=== PATIENT | female | born 1940 | race Caucasian/White ===

== ENCOUNTER 2019-05-25 10:51 | Inpatient (IN) | payer MEDICARE, OTHER, SELFPAY | END 2019-05-27 16:05 | disposition home or self-care (01) | DRG 176 | PROVIDERS: Admitting Provider Internal Medicine; Emergency Provider Family Medicine; Family Provider Family Medicine; Visit Provider Internal Medicine | DX: I26.99 Other pulmonary embolism without acute cor pulmonale (principal); Z23 Encounter for immunization; I10 Essential (primary) hypertension; E78.5 Hyperlipidemia, unspecified; E03.9 Hypothyroidism, unspecified; I80.02 Phlebitis and thrombophlebitis of superficial vessels of left lower extremity; G47.33 Obstructive sleep apnea (adult) (pediatric); Z85.42 Personal history of malignant neoplasm of other parts of uterus; Z79.82 Long term (current) use of aspirin; E66.01 Morbid (severe) obesity due to excess calories; Z68.35 Body mass index [BMI] 35.0-35.9, adult; H35.30 Unspecified macular degeneration; F32.9 Major depressive disorder, single episode, unspecified; K21.9 Gastro-esophageal reflux disease without esophagitis; Z92.3 Personal history of irradiation ==

== ENCOUNTER 2019-06-14 08:39 | Outpatient (CLI) | payer MEDICARE, OTHER, SELFPAY ==
--- NOTE | 2019-06-14 08:54 | CT_ITS ---
WS: [id number] CT ABDOMEN PELVIS TECHNIQUE: Contrast-enhanced CT of the abdomen and pelvis with coronal and sagittal reformatted image s. CLINICAL INFORMATION: ENDOMETRIUM CANCER, PULMONARY EMBOLISM COMPARISON: None. DLP: 1084.[address] scans at [facility] use at least one of these dose optimization techniques: automat ed exposure control; mA and/or kV adjustment per patient size (includes targeted exams where dose is matched to clinical indication); or iterative reconstruction. FINDINGS: Mild diffuse fatty infiltration of the liver. Normal portal vein and splenic vein. Cholecystectomy cl ips. Splenic granulomas. Moderate esophageal hiatal hernia with periesophageal component. Calcified g ranuloma right lung base. Adrenal glands are normal. Normal pancreas. Abdominal aortic calcification. No aneurysm. Sigmoid diverticulosis. No evidence of acute diverticulitis. No evidence of small or large bowel obst ruction. Mild fecal retention in the colon. No periaortic lymphadenopathy. No inguinal lymphadenopath y. Slight retrolisthesis L5 on S1. CT/CT abdomen pelvis w con* [id number] IMPRESSION: 1. No abdominal or pelvic lymphadenopathy. 2. Mild diffuse fatty infiltration liver. Cholecystectomy. 3. Small esophageal hiatal hernia with a paraesophageal component. 4. Normal renal parenchymal enhancement. No hydronephrosis. 5. Diverticulosis.
[2019-06-14] MEDS: iohexol 300 mg/mL 50 mL Btl PO (09:26)
[2019-06-14 09:30] LABS: Blood Urea Nitrogen 31 mg/dL (8-23)
[2019-06-14] MEDS: iodixanol 320 mg/mL 100mL Btl IV (09:37)
== END 2019-06-14 08:40 | disposition home or self-care (01) ==
LOC: RADWPI 08:51
PROVIDERS: Family Provider Family Medicine; Visit Provider Family Medicine
DX: I26.99 Other pulmonary embolism without acute cor pulmonale (principal); C54.1 Malignant neoplasm of endometrium; K76.0 Fatty (change of) liver, not elsewhere classified; K44.9 Diaphragmatic hernia without obstruction or gangrene; K57.90 Diverticulosis of intestine, part unspecified, without perforation or abscess without bleeding
CPT/HCPCS: 74177; 82565; 84520; Q9967

== ENCOUNTER 2021-04-07 08:37 | Outpatient (RCR) | payer MEDICARE, OTHER, SELFPAY | END 2021-04-29 23:59 | disposition home or self-care (01) | LOC: SPT 08:37 | PROVIDERS: Family Provider Family Medicine; PCP Family Medicine; Referring Provider Family Medicine; Visit Provider Family Medicine | DX: M25.511 Pain in right shoulder (principal); M25.512 Pain in left shoulder | CPT/HCPCS: 97110; 97162 ==

== ENCOUNTER → 2021-10-07 10:32 | Outpatient (BNVA) | payer MEDICARE, OTHER, SELFPAY | PROVIDERS: Family Provider Family Medicine; PCP Family Medicine; Visit Provider Family Medicine | DX: C54.1 Malignant neoplasm of endometrium (principal); E78.5 Hyperlipidemia, unspecified; Z51.81 Encounter for therapeutic drug level monitoring; E03.9 Hypothyroidism, unspecified; I10 Essential (primary) hypertension | CPT/HCPCS: 80053; 80061; 83880; 84443; 85025; 85651; 86140 ==

== ENCOUNTER 2021-10-30 09:50 | Outpatient (CLI) | payer MEDICARE, OTHER, SELFPAY ==
--- NOTE | 2021-10-30 09:58 | USCV_ITS ---
Gela Jane Age: 81 Gender: F : 1940 Exam Date: 10/30/2021 10:20 Ordering Phys: Adair Bhatt MD Technologist: Remington Washington [place] [facility] [place]: Congetive heart failure BP: 90 / 50 HR: 62 Rhythm: Sinus Technical Quality: Adequate MEASUREMENTS (Male / Female) Normal Values 2D ECHO LV Diastolic Diameter PLAX 4.4 cm 4.2 - 5.9 / 3.9 - 5.3 cm LV Systolic Diameter PLAX 2.9 cm IVS Diastolic Thickness 1.2 cm 0.6 - 1.0 / 0.6 - 0.9 cm IVS Systolic Thickness 1.5 cm LVPW Diastolic Thickness 1.0 cm 0.6 - 1.0 / 0.6 - 0.9 cm LVPW Systolic Thickness 1.3 cm LVOT Diameter 2.0 cm LV Ejection Fraction 2D Teich 62.9 % LV Ejection Fraction MOD 2C 56.3 % LV Ejection Fraction 2C AL 58.7 % LA Diameter 3.5 cm LA Width 3.6 cm LA Height 4.9 cm RA Width 2.9 cm RA Height 4.4 cm Aorta at Sinotubular Diameter 2.7 cm IVC Diameter 1.8 cm M-MODE Aortic Annulus Diameter 2.6 cm LA Ao Ratio MM 1.2 MV E Point Septal Separation 0.6 cm DOPPLER AV Peak Velocity 144.0 cm/s LVOT Peak Velocity 81.0 cm/s AV Area Cont Eq vti 1.7 cm squared AV Area Cont Eq pk 1.8 cm squared MV Peak Velocity 101.0 cm/s MV Area PHT 5.4 cm squared Mitral E to A Ratio 0.6 MV E' Velocity 30.0 cm/s Mitral E to MV E' Ratio 6.9 Mitral E to LV E' Lateral Ratio 7.7 Mitral E to LV E' Septal Ratio 6.3 TR Peak Velocity 248.5 cm/s TR Peak Gradient 24.7 mmHg TR Mean Velocity 199.5 cm/s TR Mean Gradient 16.8 mmHg TR Velocity Time Integral 71.5 cm Right Atrial Pressure 3.0 mmHg Pulmonary Artery Systolic Pressu 27.7 mmHg RV Acceleration Time 0.1 s RV Ejection Time 0.2 s RV AcT/ET 0.4 FINDINGS Left Ventricle Technically limited quality echocardiogram because of poor ultrasonic windows. Normal left ventricular size. LV systolic function is normal with EF 55 to 60%. No regional wall motion abnormalities. Grade 1 diastolic dysfunction Right Ventricle The right ventricle is normal in size and function. Right Atrium The right atrium is normal in size. Left Atrium The left atrium is normal in size. Mitral Valve Mild mitral annular calcification without significant stenosis or prolapse. There is trace mitral regurgitation. Aortic Valve Thickened aortic valve without significant stenosis. There is mild aortic regurgitation. Tricuspid Valve Structurally normal tricuspid valve without significant stenosis. Mild tricuspid regurgitation. Pulmonary artery systolic pressure is normal. Pulmonic Valve Not well-visualized Pericardium Normal pericardium without effusion. Aorta Normal ascending aorta dimension. IVC CONCLUSIONS Technically limited quality echocardiogram because of poor ultrasonic windows. LV systolic function is normal with EF 55 to 60%. Grade 1 diastolic dysfunction. Trace mitral regurgitation. Mild aortic regurgitation. Mild tricuspid regurgitation. Compared to prior echocardiogram from 05/25/2019, no significant changes seen. Alexsander Mckeon MD (Electronically Signed) Final Date: 12 November 2021 11:17 S
== END 2021-10-30 09:51 | disposition home or self-care (01) ==
LOC: RAD 09:52
PROVIDERS: PCP Family Medicine; Visit Provider Family Medicine
DX: I50.9 Heart failure, unspecified (principal); I08.3 Combined rheumatic disorders of mitral, aortic and tricuspid valves
CPT/HCPCS: 93306

== ENCOUNTER → 2022-05-14 08:58 | Outpatient (BNVA) | payer MEDICARE, OTHER, SELFPAY | PROVIDERS: PCP Family Medicine; Visit Provider Family Medicine | DX: I10 Essential (primary) hypertension (principal); R53.83 Other fatigue; Z86.711 Personal history of pulmonary embolism; F41.9 Anxiety disorder, unspecified; H35.30 Unspecified macular degeneration | CPT/HCPCS: 80053; 84443 ==

== ENCOUNTER → 2022-11-19 09:23 | Outpatient (BNVA) | payer MEDICARE, OTHER, SELFPAY | PROVIDERS: PCP Family Medicine; Visit Provider Family Medicine | DX: I10 Essential (primary) hypertension (principal); R53.83 Other fatigue; E03.9 Hypothyroidism, unspecified; R07.9 Chest pain, unspecified | CPT/HCPCS: 80053; 80061; 82607; 83735; 84443; 85025; 85651; 86140 ==

== ENCOUNTER 2022-12-18 06:29 | Outpatient (CLI) | payer MEDICARE, OTHER, SELFPAY ==
[2022-12-18 06:55] VITALS: BMI 31.1
--- NOTE | 2022-12-18 06:56 | ECG_ITS ---
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 Interpretive Statements NAME OF STUDY: LEXISCAN SESTAMIBI STRESS TEST INDICATION: Chest Pain PROCEDURE: At the baseline, the blood pressure was 136/77 mmHg with a heart rate of 55 bpm. The electrocardiogram showed sinus bradycardia with first-degree AV block. normal axis. Possible old anteroseptal infarct. The Lexiscan was infused over a period of 20 seconds. A total of 0.4 milligrams of Lexiscan was infused. The stress phase was continued for a total of 5 minutes. Heart rate at the end of the stress phase was 69 bpm with a blood pressure 122/76 mmHg. The EKG at the peak infusion revealed nonspecific ST-T wave changes and frequent supraventricular ectopic beats. Sestamibi was injected 20 seconds after the Lexiscan infusion. Blood pressure at the end of the recovery phase was 120/74 mmHg with a heart rate of 66 beats per minute. Patient developed nausea and required administration of Zofran. CONCLUSION: 1. No significant EKG changes with the LexiScan infusion 2. No LexiScan induced chest pain or cardiac arrhythmia. 3. Normal blood pressure and heart rate response. 4. Sestamibi/sestamibi perfusion scan pending; see separate report. Electronically Signed On 12-20-2022 13:22:41 CDT by Caro Roberts M.D. [id number]
--- NOTE | 2022-12-18 06:56 | NMCV_ITS ---
NM ayla perf SPECT r/s* [id number] Gela Jane Age: 82 Gender: F : 1940 Exam Date: 12/18/2022 07:40 Ordering Phys: Adair Bhatt MD Technologist: BRIANNE Abrams Exam Location: [facility] Indications: CHEST PAIN STRESS TEST Please see separate stress test report in [facility] for full findings IMAGE PROTOCOL Rest/Stress 1 Lexiscan Day Radiopharmaceutical Dose (mCi) Administration Site Administered by Rest: Tc-99m 10.6 IV Myke Adamson, INDEPENDENT LIVING ADVISOR Sestamibi Stress:Tc-99m 32.7 IV Myke Adamson, INDEPENDENT LIVING ADVISOR Sestamibi Rest: 18-Dec-2022 60 Discovery 630 Stress: 18-Dec-2022 30 Discovery 630 0.4mg Lexiscan. Images obtained in supine and prone position. SPECT RESULTS Technical Quality: Excellent Raw Data Analysis: Normal Image Corrections: No attenuation or motion correction applied Summed Stress Score: 1 Summed Rest Score: 3 Summed Difference Score: 0 PERFUSION FINDINGS SPECT images demonstrate homogeneous tracer distribution throughout the myocardium. FUNCTIONAL RESULTS (calculated via Gated SPECT) Stress Image LV EF (%): 60 Stress EDV (mL):121 TID: 0.85 Stress ESV (mL):49 FUNCTIONAL FINDINGS: The left ventricle is normal in size. Transient Ischemia Dilatation of 0.85. The left ventricular ejection fraction is normal with a value of 60% There is normal left ventricular wall thickening. IMPRESSIONS 1. Myocardial perfusion imaging is normal. 2. Overall left ventricular systolic function is normal without regional wall motion abnormalities,LVEF=60%. 3. EKG portion of the study will be reported separately. Caro Roberts MD (Electronically Signed) Final Date: 18 December 2022 13:54 S
[2022-12-18] MEDS: regadenoson 0.4 Mg/5 ml Syringe IVP (08:24)
[2022-12-18] MEDS: ondansetron 2 mg/ML SDV 2 mL 4 MG IVP (08:34)
[2022-12-18 08:35] VITALS: BP 120/74; PULSE 65
== END 2022-12-18 06:30 | disposition home or self-care (01) ==
LOC: CDL 06:33
PROVIDERS: PCP Family Medicine; Visit Provider Family Medicine
DX: R07.9 Chest pain, unspecified (principal)
CPT/HCPCS: 36415; 78452; 93017; 96374; 96375; A9500; J2405; J2785

== ENCOUNTER → 2023-10-28 09:14 | Outpatient (BNVA) | payer MEDICARE, OTHER, SELFPAY | PROVIDERS: PCP Family Medicine; Visit Provider Family Medicine | DX: E55.9 Vitamin D deficiency, unspecified (principal); F41.9 Anxiety disorder, unspecified; I10 Essential (primary) hypertension; E03.9 Hypothyroidism, unspecified; R53.83 Other fatigue; E11.9 Type 2 diabetes mellitus without complications; Z79.899 Other long term (current) drug therapy | CPT/HCPCS: 80053; 80061; 82306; 82607; 83036; 83880; 84443; 85025; 86140 ==

== ENCOUNTER → 2023-11-18 09:05 | Outpatient (BNVA) | payer MEDICARE, OTHER, SELFPAY | PROVIDERS: PCP Family Medicine; Visit Provider Family Medicine | DX: I10 Essential (primary) hypertension (principal) | CPT/HCPCS: 80048 ==

== ENCOUNTER → 2024-03-23 09:56 | Outpatient (BNVA) | payer MEDICARE, OTHER, SELFPAY | PROVIDERS: PCP Family Medicine; Visit Provider Family Medicine | DX: I10 Essential (primary) hypertension (principal); E03.9 Hypothyroidism, unspecified; E11.9 Type 2 diabetes mellitus without complications | CPT/HCPCS: 80048; 84443 ==

== ENCOUNTER → 2024-06-21 11:50 | Outpatient (BNVA) | payer MEDICARE, OTHER, SELFPAY | PROVIDERS: PCP Family Medicine; Visit Provider Family Medicine | DX: F41.9 Anxiety disorder, unspecified (principal); I10 Essential (primary) hypertension; E03.9 Hypothyroidism, unspecified; R53.83 Other fatigue | CPT/HCPCS: 80053; 84443; 85025 ==

== ENCOUNTER 2024-11-27 11:15 | Emergency (ER) | payer MEDICARE, OTHER, SELFPAY ==
--- NOTE | 2024-11-27 11:21 | CTR_ITS ---
PROCEDURE INFORMATION: Exam: CT Head Without Contrast Exam date and time: 11/27/2024 11:18 AM Age: 84 years old Clinical indication: Stroke-like symptoms; Dizziness/giddiness; Myron lower extremity weakness; Additional info: Symptoms of acute stroke TECHNIQUE: Imaging protocol: Computed tomography of the head without contrast. Radiation optimization: All CT scans at this facility use at least one of these dose optimization techniques: automated exposure control; mA and/or kV adjustment per patient size (includes targeted exams where dose is matched to clinical indication); or iterative reconstruction. Other technique: STROKE PROTOCOL was implemented. COMPARISON: No relevant prior studies available. RADIATION DOSE METRICS: Total DLP (mGy-cm): 1106.12 FINDINGS: Brain: No acute infarct, hemorrhage, mass, or mass effect. Mild chronic white matter microvascular ischemic change. Cerebral ventricles: Moderate brain parenchymal atrophy with widening of the ventricles and sulci. No appreciable extra-axial fluid. Paranasal sinuses: Clear. Mastoid air cells: Clear. Orbital cavities: Orbits are unremarkable. Sella is unremarkable. Bones: Unremarkable. Soft tissues: Unremarkable. CT/CT head thrombolytic [id number] IMPRESSION: No acute intracranial abnormality. ASSESSMENT: ASPECTS (Monie Stroke Program Early CT Score) is 10.
--- OUTSIDE RECORDS SUMMARY | 2024-11-27 11:25 | XMS_ITS | Clinical Summary ---
Author Organization [facility] Address [address] Attn: [place] [address] Care Team Providers Care Machine Shop Specialist Name Role Phone Adair Bhatt MD Primary Care Provider [phone] Social History Tobacco Use Types Packs/Day Years Used Date Smoking Tobacco: Never Assessed Comments Unknown Sex and Gender Information Value Date Recorded Sex Assigned at Not on file Legal Sex Female 12:23 PM BILLING CLERK Gender Identity Not on file Sexual Orientation Not on file Plan of Treatment Health Maintenance Due Date Last Done Comments DTAP/TDAP/TD VACCINES (1 - Tdap) 1959 PNEUMOCOCCAL VACCINE 50+ YEARS (1 of 1 - PCV) 06/07/18 90 ZOSTER VACCINE (1 of 2) 1989 OSTEOPOROSIS SCREENING 2004 RSV VACCINE (60+ or ) (1 - 1-dose 75+ series) 2014 INFLUENZA VACCINE (#1) 2023 Care Teams Machine Shop Specialist Relationship Specialty Start Date End Date Adair Bhatt MD [address] [place] [phone] PCP - General Family Practice 07/19/15
--- OUTSIDE RECORDS SUMMARY | 2024-11-27 11:25 | XMS_ITS | Encounter Summary ---
Author Organization [facility] Address [address] [place] [address] Care Team Providers Care Flux Core Welder Name Role Phone Adair Bhatt MD Primary Care Provider Encounter Details Date Type Department Care Team (Late st Contact Info) Description 07/19/2015 Ancillary Orders [facility] Admitting [address] [place] [id number] Anival Montez, KIM [address] [place], [place] [id number] Hallux valgus of right foot (Primary Dx); Charliee, right Social History Tobacco Use Types Packs/Day Years Used Date Smoking Tobacco: Never Assessed Comments Unknown Sex and Gender Information Value Date Recorded Sex Assigned at Not on file Legal Sex Female 3:24 PM PRIVACY MANAGER Gender Identity Not on file Sexual Orientation Not on file documented as of this encounter Plan of Treatment Not on file documented as of this encounter Results * XR FOOT 3+ VW RIGHT (07/19/2015 4:12 PM PRIVACY MANAGER) Anatomical Region Laterality Modality Ankle / Foot Computed Radiogr aphy 07/19/2015 4:12 PM PRIVACY MANAGER Impressions 07/22/2015 2:45 PM PRIVACY MANAGER IMPRESSION: 1. No acute injury to the bony right foot. [id number] Narrative 07/22/2015 2:45 PM PRIVACY MANAGER Exam: XR FOOT 3+ VW RIGHT Date/Time of Exam: 07/19/2015 4:12 PM Reason For Exam: Hallux valgus of right foot, Hammertoe, right. Findings: AP, lateral and oblique projections of the right foot demonstrates no evidence of fracture. Tarsal and metatarsal bones appear to be intact. Rays of the foot are likewise intact. Katiana are unremarkable. There are no radiopaque soft tissue foreign bodies. Anival Montez DPLily DIAGNOSTIC IMAGING ORDERABLE S Final Result documented in this encounter Visit Diagnoses Diagnosis Hallux valgus of right foot- Primary Hammertoe, right Hallux valgus of right foot Hammertoe, right documented in this encounter Care Teams Flux Core Welder Relationship Specialty Start Date End Date Adair Bhatt MD [address] [place] [phone] PCP - General Family Practice 07/19/15 documented as of this encounter
--- OUTSIDE RECORDS SUMMARY | 2024-11-27 11:25 | XMS_ITS | Clinical Summary ---
Author Organization [facility] Address [address] [address] Phone Care Team Providers Care Industrial Trainer Name Role Phone Adair Bhatt MD Primary Care Provider Social History Tobacco Use Types Packs/Day Years Used Date Smoking Tobacco: Never Assessed Comments Unknown Sex and Gender Information Value Date Recorded Sex Assigned at Not on file Legal Sex Female 3:24 PM GRIP WRAPPER Gender Identity Not on file Sexual Orientation Not on file Plan of Treatment Health Maintenance Due Date Last Done Comments DTAP/TDAP/TD VACCINES (1 - Tdap) 1958 PNEUMOCOCCAL VACCINE 50+ YEARS (1 of 1 - PCV) 06/07/18 90 ZOSTER VACCINE (1 of 2) 1989 OSTEOPOROSIS SCREENING 2004 RSV VACCINE (60+ or ) (1 - 1-dose 75+ series) 2014 INFLUENZA VACCINE (#1) [address] [place] [id number] MEDICARE PART A AND B [facility] Care Teams Industrial Trainer Relationship Specialty Start Date End Date Adair Bhatt MD [address] [place] [phone] PCP - General Family Practice 07/19/15
--- NOTE | 2024-11-27 11:27 | W.ED.NEUROSD ---
HPI - Neuro Symptoms/Deficit General: Chief Complaint: Neuro Symptoms/Deficit Stated Complaint: stroke alert Time Seen by Provider: 11/27/24 11:20 History of Present Illness: 84-year-old female presents emergency room from urgent care clinic with complaints of dizziness nausea and vomiting sudden onset this morning but has had a headache for the last couple of days. Initially seen by Dr. Rousseau directed to the emergency room for concern of stroke. Her last known well was last evening she woke up this morning around 9:00 with the symptoms. Associated symptoms: Deny chest pain Related Data Home Medications ?Medication ?Instructions ?Recorded ?Confirmed cholecalciferol (vitamin D3) 25 1,000 unit PO DAILY 06/06/19 11/27/24 mcg (1,000 unit) capsule aspirin 81 mg tablet,delayed 162 mg PO DAILY 08/27/22 11/27/24 release (Adult Aspirin Regimen) Previous Rx's ?Medication ?Instructions ?Recorded vit C 250 mg-vit E 90 mg-zinc 40 1 tab PO BID #90 caps 07/25/20 mg-copper 1 rp-mwzqun-ihrinq capsule (PreserVision AREDS-2) ketoconazole 2 % topical cream 1 applic topical BID #30 grams 01/14/21 amlodipine 10 mg tablet See Rx Instructions .Route 06/21/24 .COMPLEX #90 tabs citalopram 20 mg tablet 20 mg PO BID #180 tabs 06/21/24 omeprazole 20 mg capsule,delayed 20 mg PO DAILY #90 caps 06/21/24 release levothyroxine 75 mcg tablet 75 mcg PO DAILY #90 tabs 06/23/24 atorvastatin 40 mg tablet (Lipitor) 40 mg PO DAILY #30 tabs 11/27/24 clopidogrel 75 mg tablet 75 mg PO DAILY #30 tabs 11/27/24 Allergies Allergy/AdvReac Type Severity Reaction Status Date / Time No Known Allergies Allergy Verified 11/27/24 10:45 Review of Systems Const: Denies: fever(s) or chills Card: Denies: chest pain Resp: Denies: dyspnea GI: Denies: abdominal pain : Denies: dysuria, urinary frequency or urinary urgency Musc: Denies: neck pain or back pain Skin/Breast: Denies: rash PFSH ED PFSH: Medical History Anxiety Hypothyroidism Sleep apnea Hypertension Dyslipidemia Macular degeneration Pulmonary embolism DVT (deep venous thrombosis) Surgical History S/P cholecystectomy H/O: hysterectomy Family History Other Cancer Hyperlipidemia Hypertension Social History Smoking and tobacco/nicotine status: never used tobacco/nicotine Alcohol intake: never Substance/Drug Use: never NIH stroke score NIHSS: Level Of Consciousness - 1a: 0 Level Of Consciousness Questions - 1b: Both Correct Level Of Consciousness Commands - 1c: Both Correct Best Gaze - 2: Normal Visual Rojas - 3: No Visual Loss Facial Palsy - 4: Normal Motor Arm Right - 5: No Drift Motor Arm Left - 5: No Drift Motor Leg Right - 6: No Drift Motor Leg Left - 6: No Drift Limb Ataxia - 7: Absent Sensory - 8: Normal Best Language - 9: No Aphasia Dysarthia - 10: Normal Extinction And Inattention - 11: 0 Score: Total Score: 0 Physical Exam Const: GENERAL APPEARANCE: cooperative ORIENTATION/CONSCIOUSNESS: Yes awake, Yes oriented to person, Yes oriented to place and Yes oriented to time HENMT: COMMON NORMALS: normocephalic, atraumatic and hearing grossly normal bilaterally HEAD & SCALP: normocephalic and atraumatic Resp: COMMON NORMALS: normal respiratory effort, No retractions, No use of accessory muscles and clear to auscultation bilaterally AUSCULTATION: clear to auscultation bilaterally Cardio: COMMON NORMALS: regular rate, regular rhythm and No murmurs present (Cardio) RATE: regular rate RHYTHM: regular rhythm GI: COMMON NORMALS: Soft to palpation and No hepatosplenomegaly present AUSCULTATION: Yes normoactive bowel sounds PALPATION: Yes Soft to palpation, No Tenderness to palpation present (GI), No Guarding due to palpation present (GI) and Yes No hepatosplenomegaly present Extremity: COMMON NORMALS: normal to inspection, capillary refill normal, no clubbing, cyanosis or edema, no calf tenderness and no pedal edema Neuro: SENSORIUM/ORIENTATION: Yes oriented to person, Yes oriented to place and Yes oriented to time Skin: COMMON NORMALS: no rashes or lesions noted GENERAL SKIN EXAM: no rashes or lesions noted Course Vital Signs: Vital signs: Vital Signs Temperature 97.9 F 11/27/24 11:28 Pulse Rate 55 L 11/27/24 13:01 Respiratory Rate 16 11/27/24 11:28 Blood Pressure 180/91 11/27/24 13:01 Pulse Oximetry 91 11/27/24 13:01 Oxygen Delivery Me thod Room Air 11/27/24 12:06 MDM - Neuro Symptoms/Deficit Medical Decision Making Patient presents with symptoms as described as wake up well outside of any window for treatment on arrival here she has an NIH of 0 no signs of posterior stroke no nausea or vomiting she still has little bit of dizziness occasionally does not appear to be central she ambulates without any difficulty. Reviewed the case with Dr. Carmichael who is on-call for stroke for neurology. She does not feel a CTA head and neck are necessary. Will add clopidogrel and atorvastatin and have the patient follow-up with primary care doctor to monitor blood pressure she is mildly elevated at this time we did not make any adjustments. Medical Records I reviewed the patient's medical records. Lab Data I reviewed the patient's lab results. 11/27/24 11:36 11/27/24 11:[address] 11/27/24 11:21 IMPRESSION: No acute intracranial abnormality. ASSESSMENT: ASPECTS ([place] Stroke Program Early CT Score) is 10. ADDENDUM: 11/27/24 1139 COMMENT: THIS REPORT CONTAINS FINDINGS THAT MAY BE CRITICAL TO PATIENT CARE. The exam findings were verbally communicated by me to CATARINO PEÑALOZA via telephone conference at 11:38 AM CDT on 11/27/2024. The findings were acknowledged and understood. Laboratory Results WBC 7.52 10^3/uL (3.29-11.43) 11/27/24 11:36 RBC 4.11 10^6/uL (3.85-5.65) 11/27/24 11:36 Hgb 12.70 g/dL (11.27-16.99) 11/27/24 11:36 Hct 40.3 % (36-47) 11/27/24 11:36 MCV 98.1 fl (85-98) H 11/27/24 11:36 MCH 30.9 pg (27-33) 11/27/24 11:36 MCHC 31.5 g/dL (30-55) 11/27/24 11:36 RDW 13.7 % (12.1-15.1) 11/27/24 11:36 Plt Count 261 10^3/cmm (157-399) 11/27/24 11:36 MPV 9.0 fL (7.4-10.4) 11/27/24 11:36 Neut % (Auto) 64.8 % 11/27/24 11:36 Lymph % (Auto) 17.2 % 11/27/24 11:36 Kane % (Auto) 13.3 % 11/27/24 11:36 Eos % (Auto) 3.7 % 11/27/24 11:36 Baso % (Auto) 0.7 % 11/27/24 11:36 Neut # (Auto) 4.88 10^3/uL (1.8-7.7) 11/27/24 11:36 Lymph # (Auto) 1.3 10^3/uL (0.8-4.8) 11/27/24 11:36 Kane # (Auto) 1.0 10^3/uL (0.2-0.9) H 11/27/24 11:36 Eos # (Auto) 0.3 10^3/uL (0.0-0.8) 11/27/24 11:36 Baso # (Auto) 0.1 10^3/uL (0.0-0.1) 11/27/24 11:36 Nucleated RBC % (auto) 0 % 11/27/24 11:36 Nucleated RBCs # 0.0 /100WBC 11/27/24 11:36 PT 13.10 SECONDS (12.1-14.9) 11/27/24 11:36 INR 0.93 (0.8-1.2) 11/27/24 11:36 APTT 25.6 SECONDS (23.9-36.7) 11/27/24 11:36 Sodium 138 mmol/L (136-145) 11/27/24 11:36 Potassium 3.9 mmol/L (3.5-5.1) 11/27/24 11:36 Chloride 103 mmol/L (98-107) 11/27/24 11:36 Carbon Dioxide 26 mmol/L (22-29) 11/27/24 11:36 Anion Gap 12.9 (5-19) 11/27/24 11:36 BUN 19 mg/dL (8-23) 11/27/24 11:36 Creatinine 1.2 mg/dL (0.5-0.9) H 11/27/24 11:36 GFR Calculation Not Reportable 11/27/24 11:36 Glucose 83 mg/dL (65-115) 11/27/24 11:36 POC Glucose 98 mg/dL (70-110) 11/27/24 11:24 Calculated Osmolality 287 mOsm/kg (285-295) 11/27/24 11:36 Calcium 9.6 mg/dL (8.5-10.5) 11/27/24 11:36 Total Bilirubin 0.5 mg/dL (0.15-1.2) 11/27/24 11:36 AST 15 U/L (0-32) 11/27/24 11:36 ALT 9 U/L (0-33) 11/27/24 11:36 Alkaline Phosphatase 117 U/L (35-105) H 11/27/24 11:36 Total Protein 6.6 g/dL (6.6-8.7) 11/27/24 11:36 Albumin 3.7 g/dL (3.5-5.2) 11/27/24 11:36 Globulin 2.9 g/dL (1.3-4.6) 11/27/24 11:36 Urine Color Yellow (Yellow) 11/27/24 11:47 Urine Appearance Clear (CLEAR) 11/27/24 11:47 Urine pH 7.0 (5-7) 11/27/24 11:47 Ur Specific Ruffin 1.010 (1.005-1.030) 11/27/24 11:47 Urine Protein 1+ (Negative) A 11/27/24 11:47 Urine Glucose (UA) Negative (Normal) 11/27/24 11:47 Urine Ketones Negative (Negative) 11/27/24 11:47 Urine Blood Negative (Negative) 11/27/24 11:47 Urine Nitrate Negative (Negative) 11/27/24 11:47 Urine Bilirubin Negative (Negative) 11/27/24 11:47 Urine Urobilinogen 0.2 mg/dL (Negative) 11/27/24 11:47 Ur Leukocyte Esterase Negative (Negative) 11/27/24 11:47 Urine RBC 0-2 /hpf (0-2) 11/27/24 11:47 Urine WBC 0-5 /hpf (0-5) 11/27/24 11:47 Ur Squamous Epith Cells 0-5 /hpf (0-5) 11/27/24 11:47 Amorphous Sediment Not Reportable 11/27/24 11:47 Urine Bacteria None seen /hpf (NONE) 11/27/24 11:47 Hyaline Casts 0-4 /lpf H 11/27/24 11:47 Urine Opiates Screen Negative ng/mL (Negative) 11/27/24 11:47 Ur Barbiturates Screen Negative ng/mL (Negative) 11/27/24 11:47 Ur Phencyclidine Scrn Negative ng/mL (Negative) 11/27/24 11:47 Ur Amphetamines Screen Negative ng/mL (Negative) 11/27/24 11:47 U Benzodiazepines Scrn Negative ng/mL (Negative) 11/27/24 11:47 Urine Cocaine Screen Negative ng/mL (Negative) 11/27/24 11:47 U Marijuana (THC) Screen Negative ng/mL (Negative) 11/27/24 11:47 All radiology interpretation(s) finalized by discharge Discharge Plan Discharge Patient Disposition: Home Clinical Impression: Transient cerebral ischemia, Hypertension Condition: Stable Prescriptions: New atorvastatin [Lipitor] 40 mg tablet 40 mg PO DAILY Qty: 30 0RF clopidogrel 75 mg tablet 75 mg PO DAILY Qty: 30 0RF No Action cholecalciferol (vitamin D3) 1,000 unit capsule 1,000 unit PO DAILY ketoconazole 2 % cream 1 applic topical BID Qty: 30 2RF Rx Instructions: ears and face prn PreserVision AREDS-2 [id number] ap-axli-aj-mg capsule 1 tab PO BID Qty: 90 0RF Rx Instructions: administer with meals amlodipine 10 mg tablet See Rx Instructions .ROUTE .COMPLEX Qty: 90 3RF Dose Instruction: TAKE 1 TABLET ONCE DAILY Rx Instructions: TAKE 1 TABLET ONCE DAILY citalopram 20 mg tablet 20 mg PO BID Qty: 180 3RF omeprazole 20 mg capsule,delayed release(DR/EC) 20 mg PO DAILY Qty: 90 3RF aspirin [Adult Aspirin Regimen] 81 mg tablet,delayed release (DR/EC) 162 mg PO DAILY levothyroxine 75 mcg tablet 75 mcg PO DAILY Qty: 90 11RF Discharge Orders: Discharge ED (Routine); Ordered 11/27/24 Ordered By: Catarino Peñaloza Referrals: Adair Bhatt MD [Primary Care Provider, Family Practice] Discharge Diet: Usual diet Discharge Activity: Increase activity as tolerated Patient Instructions: Opioid Safety, Pain Management, Patient Portal & Edy Instructions Activity Restrictions/Additional Instructions: [facility]. It is very important that you follow up as instructed or that you return to the Emergency Department should you have concerns or if your condition changes or worsens in any way. You are seen in the emergency room with complaint of weakness nausea vomiting dizziness. On exam your symptoms had resolved. You's reported to us that you are not having any further symptoms were able to walk you without any significant difficulty. CT of your head was negative. We discussed your case with the on-call neurologist they did not feel any further imaging was necessary at this time we do recommend that you continue your aspirin daily and start clopidogrel 75 mg daily atorvastatin 40 mg daily. Your blood pressure was elevated in the emergency room you should follow-up with this as an outpatient with your primary care doctor. hotel manager will make arrangements for you to follow-up with neurology. You should continue with the atorvastatin and clopidogrel until you follow-up with your doctor and the neurologist to see if they wish to continue this. 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
[2024-11-27 11:28] VITALS: BP 185/96; PULSE 53; RESP 16; TEMP 36.6; O2SAT 92
--- NOTE | 2024-11-27 11:28 | ECG_ITS ---
[facility] Test Date: 2024-11-27 Pat Name: Gela Jane Department: Room: Gender: Female Community Service Organization Director: : 1940 Requested By: Catarino Gupta Order Number: [id number] Kain MD: Alexsander Mckeon M.D. Measurements Intervals Crescent Rate: 53 P: 64 PA: 260 QRS: -37 QRSD: 101 T: 21 QT: 460 QTc: 433 Interpretive Statements SINUS BRADYCARDIA WITH FIRST DEGREE AV BLOCK WITH OCCASIONAL SUPRAVENTRICULAR PREMATURE COMPLEXES LEFT AXIS DEVIATION [QRS AXIS < -30] Compared to ECG 05/25/2019 12:56:28 Sinus rhythm no longer present T-wave abnormality no longer present Possible ischemia no longer present Electronically Signed On 11-30-2024 09:08:39 CDT by Alexsander Mckeon M.D. [email or web address]
[2024-11-27 11:48] LABS: Glucose Point of Care 98 mg/dL (70-110)
[2024-11-27 11:49] LABS: Basophils # 0.1 10^3/uL (0.0-0.1); Basophils % 0.7 %; Eosinophils # 0.3 10^3/uL (0.0-0.8); Eosinophils % 3.7 %; Hematocrit 40.3 % (36-47); Lymphocytes # 1.3 10^3/uL (0.8-4.8); Lymphocytes % 17.2 %; Mean Corpuscular HGB Conc 31.5 g/dL (30-55); Mean Corpuscular Hemoglobin 30.9 pg (27-33); Mean Corpuscular Volume 98.1 fl (85-98); Monocytes % 13.3 %; Neutrophils # 4.88 10^3/uL (1.8-7.7); Neutrophils % 64.8 %; Nucleated Red Blood Cells % 0 %; Platelet Count 261 10^3/cmm (157-399); Red Blood Count 4.11 10^6/uL (3.85-5.65); Red Cell Distribution Width 13.7 % (12.1-15.1); White Blood Count 7.52 10^3/uL (3.29-11.43)
[2024-11-27 11:52] LABS: INR 0.93 (0.8-1.2); Partial Thromboplastin Time 25.6 SECONDS (23.9-36.7)
[2024-11-27 11:58] LABS: Alanine Aminotransferase 9 U/L (0-33); Albumin Level 3.7 g/dL (3.5-5.2); Alkaline Phosphatase 117 U/L (35-105); Anion Gap 12.9 (5-19); Aspartate Amino Transferase 15 U/L (0-32); Blood Urea Nitrogen 19 mg/dL (8-23); Calcium 9.6 mg/dL (8.5-10.5); Carbon Dioxide 26 mmol/L (22-29); Chloride 103 mmol/L (98-107); Globulin 2.9 g/dL (1.3-4.6); Glucose 83 mg/dL (65-115); Osmolality Calculated 287 mOsm/kg (285-295); Potassium 3.9 mmol/L (3.5-5.1); Sodium 138 mmol/L (136-145); Total Bilirubin 0.5 mg/dL (0.15-1.2); Total Protein 6.6 g/dL (6.6-8.7)
[2024-11-27 12:06] VITALS: BP 212/97; PULSE 51; O2SAT 96
[2024-11-27 12:18] LABS: Bilirubin Urine Negative (Negative); Blood Urine Negative (Negative); Glucose Urine UA Negative (Normal); Ketones Urine Negative (Negative); Leukocyte Esterase Urine Negative (Negative); Nitrate Urine Negative (Negative); Protein Urine 1+ (Negative); Urine Appearance Clear (CLEAR); Urine Color Yellow (Yellow); Urobilinogen Urine 0.2 mg/dL (Negative)
[2024-11-27 12:23] LABS: Add Urine Microscopic? YES; Bacteria Urine None Seen /hpf; Hyaline Casts Urine 0-4 /lpf; RBC Urine 0-2 /hpf (0-2); Squamous Epithelial Cell Urine 0-5 /hpf (0-5); WBC Urine 0-5 /hpf (0-5)
[2024-11-27 12:25] LABS: Amphetamines Screen Urine Negative (Negative); Barbiturates Screen Urine Negative (Negative); Benzodiazepines Screen Urine Negative (Negative); Cocaine Screen Urine Negative (Negative); Opiate Screen Urine Negative (Negative); PCP Screen Urine Negative (Negative); THC Screen Urine Negative (Negative)
--- NOTE | 2024-11-27 13:00 | PC.NURSE ---
ambulated patient per provider orders. patient ambulated well with assistance.
[2024-11-27 13:01] VITALS: BP 180/91; PULSE 55; O2SAT 91
== END 2024-11-27 13:07 | disposition home or self-care (01) ==
PROVIDERS: Emergency Provider Family Medicine; PCP Family Medicine
DX: G45.9 Transient cerebral ischemic attack, unspecified (principal); I10 Essential (primary) hypertension; Z79.82 Long term (current) use of aspirin; E78.5 Hyperlipidemia, unspecified
CPT/HCPCS: 36416; 70450; 80053; 80306; 81001; 82962; 85025; 85610; 85730; 93005; 99284

== ENCOUNTER 2024-12-08 18:54 | Emergency (ER) | payer MEDICARE, OTHER, SELFPAY ==
[2024-12-08 18:56] VITALS: BP 148/88; PULSE 75; RESP 16; TEMP 36.7; O2SAT 94; BMI 31.3
--- OUTSIDE RECORDS SUMMARY | 2024-12-08 19:07 | XMS_ITS | Clinical Summary ---
Author Organization [facility] Address [address] [address] Phone Care Team Providers Care Solid Fiber Paster Operator Name Role Phone Adair Bhatt MD Primary Care Provider [phone] Social History Tobacco Use Types Packs/Day Years Used Date Smoking Tobacco: Never Assessed Comments Unknown Sex and Gender Information Value Date Recorded Sex Assigned at Not on file Legal Sex Female 3:24 PM DIRECTOR PATIENT Gender Identity Not on file Sexual Orientation Not on file Plan of Treatment Health Maintenance Due Date Last Done Comments DTAP/TDAP/TD VACCINES (1 - Tdap) 1959 PNEUMOCOCCAL VACCINE 50+ YEARS (1 of 1 - PCV) 06/07/18 90 ZOSTER VACCINE (1 of 2) 1989 OSTEOPOROSIS SCREENING 2004 RSV VACCINE (60+ or ) (1 - 1-dose 75+ series) 2014 INFLUENZA VACCINE (#1) [address] [place] [id number] MEDICARE PART A AND B [facility] Care Teams Solid Fiber Paster Operator Relationship Specialty Start Date End Date Adair Bhatt MD [address] [place] [id number] PCP - General Family Practice 07/19/15
--- OUTSIDE RECORDS SUMMARY | 2024-12-08 19:07 | XMS_ITS | Clinical Summary ---
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
--- OUTSIDE RECORDS SUMMARY | 2024-12-08 19:07 | XMS_ITS | Encounter Summary ---
Author Organization [facility] Address [address] [place] [address] Care Team Providers Care Die Storage Worker Name Role Phone Adair Bhatt MD Primary Care Provider Encounter Details Date Type Department Care Team (Late st Contact Info) Description 07/19/2015 Ancillary Orders [facility] Admitting [address] [place] [id number] Anival Montez, KIM [address] [place], [place] [id number] Hallux valgus of right foot (Primary Dx); Charliee, right Social History Tobacco Use Types Packs/Day Years Used Date Smoking Tobacco: Never Assessed Comments Unknown Sex and Gender Information Value Date Recorded Sex Assigned at Not on file Legal Sex Female 3:24 PM ADULT DAYCARE COORDINATOR Gender Identity Not on file Sexual Orientation Not on file documented as of this encounter Plan of Treatment Not on file documented as of this encounter Results * XR FOOT 3+ VW RIGHT (07/19/2015 4:12 PM ADULT DAYCARE COORDINATOR) Anatomical Region Laterality Modality Ankle / Foot Computed Radiogr aphy 07/19/2015 4:12 PM ADULT DAYCARE COORDINATOR Impressions 07/22/2015 2:45 PM ADULT DAYCARE COORDINATOR IMPRESSION: 1. No acute injury to the bony right foot. [id number] Narrative 07/22/2015 2:45 PM ADULT DAYCARE COORDINATOR Exam: XR FOOT 3+ VW RIGHT Date/Time [...] right documented in this encounter Care Teams Die Storage Worker Relationship Specialty Start Date End Date Adair Bhatt MD [address] [place] [id number] PCP - General Family Practice 07/19/15 documented as of this encounter
--- NOTE | 2024-12-08 19:56 | XRR_ITS ---
PROCEDURE INFORMATION: Exam: XR Right Knee Exam date and time: 12/08/2024 8:09 PM Age: 84 years old Clinical indication: Injury or trauma; Blunt trauma; Right; Fall at home earlier this morning. C/O RT knee pain. ; Additional info: Fall, contusion TECHNIQUE: Imaging protocol: Radiologic exam of the right knee. Views: 1 or 2 views. COMPARISON: No relevant prior studies available. FINDINGS: Bones/joints: No acute fracture or dislocation. Degenerative changes, greatest in the medial compartment where there is significant joint space loss. Trace joint effusion. Soft tissues: No acute focal soft tissue abnormality is apparent. XR/XR knee RT 1-2V [id number] IMPRESSION: Degenerative changes with no acute fracture or dislocation identified.
--- NOTE | 2024-12-08 19:56 | XRR_ITS ---
PROCEDURE INFORMATION: Exam: XR Left Wrist Exam date and time: 12/08/2024 7:59 PM Age: 84 years old Clinical indication: Injury or trauma; Blunt trauma (contusions or hematomas); Fall earlier this morning. C/O left wrist pain. Diffuse swelling to posterior aspect of wrist. ; Additional info: Fall, contusion TECHNIQUE: Imaging protocol: Radiologic exam of the left wrist. Views: 3 or more views. COMPARISON: No relevant prior studies available. FINDINGS: Bones/joints: No acute fracture. No dislocation. 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 Soft tissues: Pronounced dorsal soft tissue swelling about the hand and distal forearm. XR/XR wrist LT min 3V* [id number] IMPRESSION: Pronounced dorsal soft tissue swelling with no acute fracture or dislocation identified.
--- NOTE | 2024-12-08 19:57 | CTR_ITS ---
PROCEDURE INFORMATION: Exam: CT Head Without Contrast Exam date and time: 12/08/2024 8:16 PM Age: 84 years old Clinical indication: Injury or trauma; Blunt trauma (contusions or hematomas); Fall with headstrike. Contusion to left lower orbit. Anticoagulated. ; Additional info: Fall, contusion TECHNIQUE: Imaging protocol: Computed tomography of the head without contrast. Radiation optimization: All CT scans at this facility use at least one of these dose optimization techniques: automated exposure control; mA and/or kV adjustment per patient size (includes targeted exams where dose is matched to clinical indication); or iterative reconstruction. COMPARISON: CT head thrombolytic [id number] 11/27/2024 11:18 AM RADIATION DOSE METRICS: Total DLP (mGy-cm): 1032.28 FINDINGS: Brain: There is diffuse cerebral atrophy and chronic microvascular white matter disease. There is no acute intracranial hemorrhage. Cerebral ventricles: There is mild ex vacuo dilation of the lateral ventricles. The basal cisterns are unremarkable. Paranasal sinuses: The paranasal sinuses are clear. Mastoid air cells: There is bone sclerosis of the mastoid air cells bilaterally. Bones: The calvarium is intact. Soft tissues: The visible extracranial soft tissues are unremarkable. CT/CT head wo con* [id number] IMPRESSION: No acute intracranial abnormality.
--- NOTE | 2024-12-08 19:57 | CTR_ITS ---
PROCEDURE INFORMATION: Exam: CT Cervical Spine Without Contrast Exam date and time: 12/08/2024 8:19 PM Age: 84 years old Clinical indication: Injury or trauma; Blunt trauma; Fall with headstrike earlier this morning. C/O neck pain. ; Additional info: Fall, contusion TECHNIQUE: Imaging protocol: Computed tomography of the cervical spine without contrast. Radiation optimization: All CT scans at this facility use at least one of these dose optimization techniques: automated exposure control; mA and/or kV adjustment per patient size (includes targeted exams where dose is matched to clinical indication); or iterative reconstruction. COMPARISON: CT head wo con* [id number] 12/08/2024 8:16 PM RADIATION DOSE METRICS: Total DLP (mGy-cm): 411.57 FINDINGS: Bones: There is mild degenerative cervical kyphosis. There is trace degenerative anterolisthesis of C4 on C5 and C5 on C6. Vertebral body height is maintained. There is mild degenerative disc disease in the cervical spine. There is moderate multilevel facet spondylosis. No acute fracture. No severe spinal stenosis. Lungs: Lung apices are not imaged. Vasculature: There is moderate atherosclerotic disease of the carotid arteries bilaterally. Soft tissues: Soft tissues in the neck and thoracic inlet are unremarkable. CT/CT cervical spin wo con* [id number] IMPRESSION: No acute fracture.
[2024-12-08 20:18] LABS: Glucose Urine UA Negative (Normal); Nitrate Urine Negative (Negative); Specific Gravity, Urine 1.027 (1.005-1.030)
[2024-12-08 20:20] LABS: Add Urine Microscopic? YES
[2024-12-08 20:39] LABS: Hematocrit 37.5 % (36-47); Hemoglobin 12.10 g/dL (11.27-16.99); Mean Corpuscular HGB Conc 32.3 g/dL (30-55); Mean Corpuscular Hemoglobin 31.5 pg (27-33); Mean Corpuscular Volume 97.7 fl (85-98); Nucleated Red Blood Cells % 0 %; Platelet Count 256 10^3/cmm (157-399); Red Blood Count 3.84 10^6/uL (3.85-5.65); White Blood Count 9.71 10^3/uL (3.29-11.43)
[2024-12-08 20:41] LABS: UA Slide Review UA Slide Review Perf
[2024-12-08 20:56] LABS: Alanine Aminotransferase 11 U/L (0-33); Albumin Level 3.7 g/dL (3.5-5.2); Alkaline Phosphatase 125 U/L (35-105); Anion Gap 17.7 (5-19); Aspartate Amino Transferase 15 U/L (0-32); Blood Urea Nitrogen 32 mg/dL (8-23); Calcium 9.6 mg/dL (8.5-10.5); Carbon Dioxide 24 mmol/L (22-29); Chloride 106 mmol/L (98-107); Creatinine Clr Calc Pharmacy 27.9764; Globulin 2.6 g/dL (1.3-4.6); Glucose 121 mg/dL (65-115); Osmolality Calculated 306 mOsm/kg (285-295); Potassium 3.7 mmol/L (3.5-5.1); Sodium 144 mmol/L (136-145); Total Protein 6.3 g/dL (6.6-8.7)
--- NOTE | 2024-12-08 21:51 | ED_ITS ---
HPI - Fall 2 General: Chief Complaint: Fall Stated Complaint: fall Left face&hand Time Seen by Provider: 12/08/24 19:35 History of Present Illness: 84-year-old patient with history of HTN, did not utilize her walker, or cane, was getting up, and fell on her left side injury to her left posterior orbit, left hand, right knee. This happened at 10 AM today. She did not alert her family to this issue. Patient not any lightheadedness, or dizziness at this time. She stated she was at first when she got up earlier today. She has had issues with her feet and tripping over them. She states she more shuffles her feet to avoid falls. Associated symptoms-after fall: Reports difficulty walking (chronic); Denies abdominal pain, chest pain, headache(s) or neck pain Related Data Home Medications ?Medication ?Instructions ?Recorded ?Confirmed cholecalciferol (vitamin D3) 25 1,000 unit PO DAILY 11/27/24 mcg (1,000 unit) capsule aspirin 81 mg tablet,delayed 162 mg PO DAILY 08/27/22 11/27/24 release (Adult Aspirin Regimen) Previous Rx's ?Medication ?Instructions ?Recorded vit C 250 mg-vit E 90 mg-zinc 40 1 tab PO BID #90 caps 07/25/20 mg-copper 1 [id number] capsule (PreserVision AREDS-2) ketoconazole 2 % topical cream 1 applic topical BID #3 0 grams 01/14/21 amlodipine 10 mg tablet See Rx Instructions .Route 0 06/21/24 .COMPLEX #90 tabs citalopram 20 mg tablet 20 mg PO BID #180 tabs 06/21 omeprazole 20 mg capsule,delayed 20 mg PO DAILY #90 ca ps 06/21/24 release levothyroxine 75 mcg tablet 75 mcg PO DAILY #90 tabs 0 06/23/24 atorvastatin 40 mg tablet (Lipitor) 40 mg PO DAILY #30 tabs 11/27/24 clopidogrel 75 mg tablet 75 mg PO DAILY #30 tabs 10/31 Allergies Allergy/AdvReac Type Severity Reaction Status Date / Time No Known Allergies Allergy Verified 11/27/24 10:45 Review of Systems 2 General: Reports: 10 or more systems reviewed and unremarkable except in HPI and below Const: Denies: fever(s) or chills Eyes: Denies: change in vision or blurry vision ENMT: Denies: throat pain Card: Denies: chest pain or palpitations Resp: Denies: dyspnea or wheezing GI: Denies: abdominal pain, nausea or vomiting : Denies: flank pain or difficulty voiding Musc: Reports: extremity pain, joint stiffness and limited range of motion; Denies: neck pain or back pain Skin/Breast: Denies: rash or pruritus Neuro: Reports: lack of coordination (chornic), difficulty walking (chronic) and dizziness (earlier briefly today); Denies: headache(s), numbness in extremities or weakness in extremities Psych: Denies: anxiety or depression PFSH ED 2 PFSH: Medical History (Updated 12/08/24 @ 21:54 by MICHELLE Sorto) Anxiety Hypothyroidism Sleep apnea Hypertension Dyslipidemia Macular degeneration Pulmonary embolism DVT (deep venous thrombosis) Surgical History S/P cholecystectomy H/O: hysterectomy Family History Other Cancer Hyperlipidemia Hypertension Social History Smoking and tobacco/nicotine status: never used tobacco/nicotine Alcohol intake: never Substance/Drug Use: never Physical Exam 2 Const: COMMON NORMALS: no acute distress, average body habitus, patient oriented x3 and no limitations GENERAL APPEARANCE: cooperative HENMT: COMMON NORMALS: normocephalic, external ears normal and Normal external nose present HEAD & SCALP: normocephalic HEAD IMAGES: 1. ecchymosis FACE & SINUS: normal facial exam NOSE: Normal external nose present and Normal nares present EXTERNAL EAR: Yes external ears normal Eye: COMMON NORMALS: Equal, round and reactive pupils present, EOMs intact bilaterally, conjunctivae normal and no scleral icterus CONJUNCTIVA: Yes conjunctivae normal PUPIL: Yes Equal, round and reactive pupils present Neck/C-Spine: COMMON NORMALS: full ROM, no lymphadenopathy and no JVD Lymph: LYMPHATIC: no lymphadenopathy noted Chest: COMMONS NORMALS: normal inspection of the chest and normal palpation of entire chest wall Resp: COMMON NORMALS: normal respiratory effort and No retractions Cardio: COMMON NORMALS: no JVD, regular rate and regular rhythm RATE: r egular rate RHYTHM: regular rhythm GI: COMMON NORMALS: Normal to inspection, nondistended, normoactive bowel sounds present : COMMON NORMALS: Yes no CVA tenderness BLADDER/KIDNEY EXAM: Yes no CVA tenderness Back/Pelvis: COMMON NORMALS: no CVA tenderness Extremity: COMMON NORMALS: normal to inspection and full ROM EXTREMITY IMAGE (FRONT): 1. edema Neuro: COMMON NORMALS: patient oriented x3 and CN's II-XII intact bilaterally Psych: COMMON NORMALS: mental status grossly normal, Normal thought process present and cooperative THOUGHT PROCESS: Normal thought process present Skin: COMMON NORMALS: no rashes or lesions noted and no wounds GENERAL SKIN EXAM: no rashes or lesions noted Course 2 Vital Signs: Vital signs: Vital Signs Temperature 98.1 F 12/08/24 18:56 Pulse Rate 75 12/08/24 18:56 Respiratory Rate 16 12/08/24 18:56 Blood Pressure 148/88 12/08/24 18:56 Pulse Oximetry 94 12/08/24 18:56 Oxygen Delivery Me thod Room Air 12/08/24 18:56 MDM - Fall Medical Decision Making Patient is a 84-year-old female with ongoing ambulatory dysfunction, did not utilize assistance device this morning, with fall on her left side. All of her x-rays and CTs are negative for acute fracture. She does have soft tissue injury to the left dorsum of her hand. Recommended physical therapy evaluation in the home of patient, ongoing walker or cane use, and follow-up with her primary care physician. Patient instructed on safety issues. She did not initially tell her family that she fell, which appeared to be due to embarrassment and trying to hide it. I have reassured patient that she needs to discuss this with her family, so she can have more help such as physical therapy, Occupational Therapy, or nursing to help her with safety measures. Patient is amicable to this, and will follow-up with her primary care physician, regarding possibility or evaluation with physical therapy. Granddaughter was present during this discussion and amicable to these concerns. Medical Records I reviewed the patient's medical records. Lab Data 12/08/24 20:35 12/08/24 20:35 Radiology Impressions Knee X-Ray 12/08/24 19:56 IMPRESSION: Degenerative changes with no acute fracture or dislocation identified. Wrist X-Ray 12/08/24 19:56 IMPRESSION: Pronounced dorsal soft tissue swelling with no acute fracture or dislocation identified. Cervical Spine CT 12/08/24 19:57 IMPRESSION: No acute fracture. Head CT 12/08/24 19:57 IMPRESSION: No acute intracranial abnormality. Laboratory Results WBC 9.71 10^3/uL (3.29-11.43) 12/08/24 20:35 RBC 3.84 10^6/uL (3.85-5.65) L 12/08/24 20:35 Hgb 12.10 g/dL (11.27-16.99) 12/08/24 20:35 Hct 37.5 % (36-47) 12/08/24 20:35 MCV 97.7 fl (85-98) 12/08/24 20:35 MCH 31.5 pg (27-33) 12/08/24 20:35 MCHC 32.3 g/dL (30-55) 12/08/24 20:35 RDW 13.3 % (12.1-15.1) 12/08/24 20:35 Plt Count 256 10^3/cmm (157-399) 12/08/24 20:35 MPV 9.0 fL (7.4-10.4) 12/08/24 20:35 Neut % (Auto) 69.6 % 12/08/24 20:35 Lymph % (Auto) 13.4 % 12/08/24 20:35 [place] % (Auto) 14.1 % 12/08/24 20:35 Eos % (Auto) 1.8 % 12/08/24 20:35 Baso % (Auto) 0.5 % 12/08/24 20:35 Neut # (Auto) 6.76 10^3/uL (1.8-7.7) 12/08/24 20:35 Lymph # (Auto) 1.3 10^3/uL (0.8-4.8) 12/08/24 20:35 [place] # (Auto) 1.4 10^3/uL (0.2-0.9) H 12/08/24 20:35 Eos # (Auto) 0.2 10^3/uL (0.0-0.8) 12/08/24 20:35 Baso # (Auto) 0.1 10^3/uL (0.0-0.1) 12/08/24 20:35 Nucleated RBC % (auto) 0 % 12/08/24 20: Nucleated RBCs # 0.0 /100WBC 12/08/24 20:35 Sodium 144 mmol/L (136-145) 12/08/24 20:35 Potassium 3.7 mmol/L (3.5-5.1) 12/08/24 20:35 Chloride 106 mmol/L (98-107) 12/08/24 20:35 Carbon Dioxide 24 mmol/L (22-29) 12/08/24 20:35 Anion Gap 17.7 (5-19) 12/08/24 20:35 BUN 32 mg/dL (8-23) H 12/08/24 20:35 Creatinine 1.7 mg/dL (0.5-0.9) H 12/08/24 20:35 GFR Calculation Not Reportable 12/08/24 20: Glucose 121 mg/dL (65-115) H 12/08/24 20:35 Calculated Osmolality 306 mOsm/kg (285-295) H 12/08/24 20:35 Calcium 9.6 mg/dL (8.5-10.5) 12/08/24 20:35 Total Bilirubin 0.2 mg/dL (0.15-1.2) 12/08/24 20:35 AST 15 U/L (0-32) 12/08/24 20:35 ALT 11 U/L (0-33) 12/08/24 20:35 Alkaline Phosphatase 125 U/L (35-105) H 12/08/24 20:35 Total Protein 6.3 g/dL (6.6-8.7) L 12/08/24 20:35 Albumin 3.7 g/dL (3.5-5.2) 12/08/24 20: Globulin 2.6 g/dL (1.3-4.6) 12/08/24 20:35 Urine Color Yellow (Yellow) 12/08/24 20:00 Urine Appearance Clear (CLEAR) 12/08/24 20:00 Urine pH 5.0 (5-7) 12/08/24 20:00 Ur Specific [place] 1.027 (1.005-1.030) 12/08/24 20:00 Urine Protein 3+ (Negative) A 12/08/24 20:00 Urine Glucose (UA) Negative (Normal) 12/08/24 20:00 Urine Ketones Trace (Negative) 12/08/24 20:00 Urine Blood Negative (Negative) 12/08/24 20:00 Urine Nitrate Negative (Negative) 12/08/24 20:00 Urine Bilirubin Negative (Negative) 12/08/24 20:00 Urine Urobilinogen 1.0 mg/dL (Negative) 12/08/24 20:00 Ur Leukocyte Esterase Trace (Negative) A 12/08/24 20:00 Urine RBC 0-2 /hpf (0-2) 12/08/24 20:00 Urine WBC 6-10 /hpf (0-5) 12/08/24 20:00 Ur Squamous Epith Cells 11-20 /hpf (0-5) H 12/08/24 20:00 Amorphous Sediment Not Reportable 12/08/24 20:00 Urine Bacteria Trace /hpf (NONE) 12/08/24 20:00 Hyaline Casts 28.94 /lpf 12/08/24 20:00 Fine Granular Casts 0-4 /lpf H 12/08/24 20:00 Coarse Granular Casts 0-4 /lpf H 12/08/24 20:00 All radiology interpretation(s) finalized by discharge ED provider radiology interpretation(s): no acute Discharge Plan Discharge Patient Disposition: Home Clinical Impression: Ambulatory dysfunction, Skin tear of left upper extremity Condition: Stable Prescriptions: No Action cholecalciferol (vitamin D3) 1,000 unit capsule 1,000 unit PO DAILY ketoconazole 2 % cream 1 applic topical BID Qty: 30 2RF Rx Instructions: ears and face prn PreserVision AREDS-2 [id number] ul-dxnw-[id number]-mg capsule 1 tab PO BID Qty: 90 0RF Rx Instructions: administer with meals amlodipine 10 mg tablet See Rx Instructions .ROUTE .COMPLEX Qty: 90 3RF Dose Instruction: TAKE 1 TABLET ONCE DAILY Rx Instructions: TAKE 1 TABLET ONCE DAILY citalopram 20 mg tablet 20 mg PO BID Qty: 180 3RF omeprazole 20 mg capsule,delayed release(DR/EC) 20 mg PO DAILY Qty: 90 3RF aspirin [Adult Aspirin Regimen] 81 mg tablet,delayed release (DR/EC) 162 mg PO DAILY levothyroxine 75 mcg tablet 75 mcg PO DAILY Qty: 90 11RF atorvastatin [Lipitor] 40 mg tablet 40 mg PO DAILY Qty: 30 0RF clopidogrel 75 mg tablet 75 mg PO DAILY Qty: 30 0RF Discharge Orders: Discharge ED (Routine); Ordered 12/08/24 Ordered By: Kelle Pierce Referrals: Adair Bhatt MD [Primary Care Provider, [facility]] Discharge Diet: Usual diet Discharge Activity: Use walker/crutches as instructed Patient Instructions: Fall Prevention for Older Adults (ED), Skin Tear (ED), Patient Portal & Edy Instructions Activity Restrictions/Additional Instructions: Follow-up with your doctor next week as we discussed Utilize a walker or cane at all times to prevent falls Discussed with your doctor possibly physical therapy or nursing to help with your ambulatory/walking dysfunction. Return to ED for fever greater than 100.4, redness, increasing swelling, or falls. No acute findings were found on your exam today. Print Language: Divehi Coding Level of Care Code ED Delivery Professional for Ra Stack
== END 2024-12-08 23:07 | disposition home or self-care (01) ==
PROVIDERS: Emergency Provider Physician Assistant; PCP Family Medicine
DX: R26.89 Other abnormalities of gait and mobility (principal); S41.112A Laceration without foreign body of left upper arm, initial encounter; S00.12XA Contusion of left eyelid and periocular area, initial encounter; W19.XXXA Unspecified fall, initial encounter; E78.5 Hyperlipidemia, unspecified; I10 Essential (primary) hypertension; Z79.02 Long term (current) use of antithrombotics/antiplatelets; Z79.82 Long term (current) use of aspirin
CPT/HCPCS: 36415; 70450; 72125; 73110; 73560; 80053; 81001; 85025; 99284